=== PATIENT | male | born 1955 | race Caucasian/White ===

== ENCOUNTER → 2019-09-13 | Outpatient (CLI) | payer BC ==
[~2019-09-13] MED LIST: ACTONEL 35 MG35 M1 PO; ASA81BEC PO; ATENOLOL 50MG T50 MG PO; CALCIUM WITH V1 EAC1 PO; CENTRUM SILVER1 EAC5 PO; DOXYCYCLINE150 MG PO; FLOMAX0.4 MG PO; LYRICA300 MG PO; PERCOCET 10-321 EAC1 PO; PREVACID30 MG PO; PROAIR HFA8.5 GM INH; SKELAXIN 800 M800 M1 PO; SPIRIVA INH
== END ==
LOC: HYPER 16:48
DX: T85.79XA Infection and inflammatory reaction due to other internal prosthetic devices, implants and grafts, initial encounter (principal); T81.31XA Disruption of external operation (surgical) wound, not elsewhere classified, initial encounter; L97.422 Non-pressure chronic ulcer of left heel and midfoot with fat layer exposed; M86.172 Other acute osteomyelitis, left ankle and foot; L03.116 Cellulitis of left lower limb; L84 Corns and callosities; M19.90 Unspecified osteoarthritis, unspecified site; M81.0 Age-related osteoporosis without current pathological fracture; B99.9 Unspecified infectious disease; R20.0 Anesthesia of skin; J44.9 Chronic obstructive pulmonary disease, unspecified; Z87.891 Personal history of nicotine dependence; Z96.9 Presence of functional implant, unspecified; Y92.89 Other specified places as the place of occurrence of the external cause; Y83.2 Surgical operation with anastomosis, bypass or graft as the cause of abnormal reaction of the patient, or of later complication, without mention of misadventure at the time of the procedure; Y83.8 Other surgical procedures as the cause of abnormal reaction of the patient, or of later complication, without mention of misadventure at the time of the procedure

== ENCOUNTER → 2019-09-13 | Outpatient (CLI) | payer BC | LOC: HYPER 00:32 | DX: T85.79XD Infection and inflammatory reaction due to other internal prosthetic devices, implants and grafts, subsequent encounter (principal); T81.31XD Disruption of external operation (surgical) wound, not elsewhere classified, subsequent encounter; L97.422 Non-pressure chronic ulcer of left heel and midfoot with fat layer exposed; M86.172 Other acute osteomyelitis, left ankle and foot; L84 Corns and callosities; M19.90 Unspecified osteoarthritis, unspecified site; M81.0 Age-related osteoporosis without current pathological fracture; B99.9 Unspecified infectious disease; J44.9 Chronic obstructive pulmonary disease, unspecified; R20.0 Anesthesia of skin; Z87.891 Personal history of nicotine dependence; Z96.9 Presence of functional implant, unspecified; Y83.2 Surgical operation with anastomosis, bypass or graft as the cause of abnormal reaction of the patient, or of later complication, without mention of misadventure at the time of the procedure; Y83.8 Other surgical procedures as the cause of abnormal reaction of the patient, or of later complication, without mention of misadventure at the time of the procedure ==

== ENCOUNTER → 2019-09-14 | Outpatient (CLI) | payer OTHER ==
--- NOTE | 2019-09-14 17:21 | NUR ---
DR LASSITER WANTED PICC FOR LT ABX. 4FRSLPICC PLACED LT ARM WITH TIP AT THE CAJ PER CXR.
[2019-09-14 18:00] VITALS: BP 106/56
--- NOTE | 2019-09-14 18:27 | NUR ---
PT HERE FOR PICC LINE PLACEMENT AND FIRST DOSE CEFAZOLIN. INSURANCE CHECKED, OUT OF POCKET IN THE HOME INFUSIONS WITH [facility] WILL BE $305 WEEKLY. PT FEELS THIS WILL BE A FINANCIAL BURDEN. DR. LASSITER NOTIFIED WITH OPTION TO CHANGE TO [facility] IF THIS WOULD BE MORE COST EFFECTIVE. HOWEVER, INSURANCE CHECK DONE NOTING $305 DAILY COPAY FOR IT. PLAN THEN TO GO WITH HOME INFUSIONS. FIRST DOSE GIVEN HERE. PT TOLERATED WITHOUT ANY S/S REACTION. [facility] WILL CALL PT TO SET UP TIME FOR HOME INFUSION MED/SUPPLY DELIVERY AND TIME FOR TEACHING. PT GIVEN THEIR NUMBER. REVIEWED PLAN WITH PT WHO VERBALIZES GOOD UNDERSTANDING. WILL DISMISS HOME BY SELF.
== END ==
LOC: OPONC 15:33
DX: L03.116 Cellulitis of left lower limb (principal)
CPT/HCPCS: 27000; 95000

== ENCOUNTER → 2019-09-22 | Outpatient (CLI) | payer OTHER | LOC: HYPER 07:18 | DX: T85.79XD Infection and inflammatory reaction due to other internal prosthetic devices, implants and grafts, subsequent encounter (principal); L97.422 Non-pressure chronic ulcer of left heel and midfoot with fat layer exposed; L03.116 Cellulitis of left lower limb; M86.172 Other acute osteomyelitis, left ankle and foot; B99.9 Unspecified infectious disease; L84 Corns and callosities; M19.90 Unspecified osteoarthritis, unspecified site; M81.0 Age-related osteoporosis without current pathological fracture; R20.0 Anesthesia of skin; J44.9 Chronic obstructive pulmonary disease, unspecified; Z87.891 Personal history of nicotine dependence; Z96.9 Presence of functional implant, unspecified; Y83.2 Surgical operation with anastomosis, bypass or graft as the cause of abnormal reaction of the patient, or of later complication, without mention of misadventure at the time of the procedure ==

== ENCOUNTER → 2019-10-07 | Outpatient (CLI) | payer OTHER ==
--- NOTE | 2019-10-07 16:00 | NUR ---
IN FOR PICC DRESSING CHANGE AND BLOOD COLLECTION FROM PICC LINE. PICC SITE LOOKS GOOD. RECEIVED A GOOD BLOOD RETURN AND ABLE TO DRAW LABS WITHOUT DIFFICULTY. PICC DRESSING CHANGED. TO RETURN NEXT THURSDAY FOR THE SAME. DISMISSED IN GOOD CONDITION.
[2019-10-07 16:14] LABS: HEMATOCRIT 43.4 % (42.0-52.0); HEMOGLOBIN 14.6 gm/dL (14.0-18.0); MCH 30.8 pg (26.0-34.0); MCHC 33.6 g/dL (28.0-37.0); MCV 91.7 fL (80.0-100.0); RBC 4.74 mil/uL (4.50-6.00); RDW 14.4 % (10.5-14.5); WBC 4.6 thou/uL (4.0-11.0)
[2019-10-07 16:32] LABS: ALBUMIN 3.6 g/dL (3.4-5.0); CALCIUM 9.1 mg/dL (8.5-10.1); CREATININE 1.1 mg/dL (0.7-1.3); POTASSIUM 4.2 mmol/L (3.5-5.1); TOTAL BILIRUBIN 0.5 mg/dL (<0.1-1.0); TOTAL PROTEIN 7.4 g/dL (6.4-8.2)
== END ==
LOC: OPONC 13:53
PROVIDERS: Specialist
DX: L03.116 Cellulitis of left lower limb (principal)

== ENCOUNTER → 2019-10-10 | Outpatient (CLI) | payer OTHER | LOC: HYPER 09:00 | DX: T85.79XD Infection and inflammatory reaction due to other internal prosthetic devices, implants and grafts, subsequent encounter (principal); L97.428 Non-pressure chronic ulcer of left heel and midfoot with other specified severity; M86.172 Other acute osteomyelitis, left ankle and foot; L03.116 Cellulitis of left lower limb; L84 Corns and callosities; B99.9 Unspecified infectious disease; R20.0 Anesthesia of skin; J44.9 Chronic obstructive pulmonary disease, unspecified; M19.90 Unspecified osteoarthritis, unspecified site; M81.0 Age-related osteoporosis without current pathological fracture; F14.90 Cocaine use, unspecified, uncomplicated; Z87.891 Personal history of nicotine dependence; Z96.9 Presence of functional implant, unspecified; Y83.8 Other surgical procedures as the cause of abnormal reaction of the patient, or of later complication, without mention of misadventure at the time of the procedure ==

== ENCOUNTER → 2019-10-10 | Outpatient (CLI) | payer OTHER ==
--- NOTE | 2019-10-10 16:11 | NUR ---
PATIENT CAME TO CLINIC UNANNOUNCED WITH PAIN AT PICC SITE. PICC FLUSHED EASILY AND RECEIVED GOOD BLOOD RETURN, HOWEVER PATIENT RELATED BURNING PAIN WHEN FLUSHING AND WHEN GIVING HIS ANTIBIOTIC AT HOME. NO REDNESS, EDEMA NOTED. CALLED DR. LASSITER AND RECIEVED ORDER TO DC PICC LINE AND PLACE MIDLINE. IV TEAM REMOVED PICC LINE AND PLACED MIDLINE IN LEFT UPPER ARM. PATIENT TO RETURN THURSDAY FOR LABS AND DRESSING CHANGE. DISMISSED IN GOOD CONDITION.
--- NOTE | 2019-10-10 16:33 | NUR ---
CONSULTED TO REPLACE A PICC LINE WITH MIDLINE ACCESS DUE TO BURNING AND DISCOMFORT AT PICC INSERTION SITE, NO REDDNESS OR SWELLING NOTED. PICC REMOVED PER PROTOCOL. A LEFT UPPER ARM CEPHALIC VEIN WAS WIDLEY PATENT. A #4F POWERMIDLINE WAS PLACED PER POLICY. TRIMMED TO 20CM AND RELEASED FOR USE
== END ==
LOC: OPONC 15:42
DX: Z45.2 Encounter for adjustment and management of vascular access device (principal); L03.116 Cellulitis of left lower limb
CPT/HCPCS: 27000

== ENCOUNTER → 2019-10-14 | Outpatient (CLI) | payer OTHER ==
[2019-10-14 15:19] LABS: HEMATOCRIT 43.6 % (42.0-52.0); HEMOGLOBIN 14.5 gm/dL (14.0-18.0); MCH 30.3 pg (26.0-34.0); MCHC 33.3 g/dL (28.0-37.0); MCV 91.1 fL (80.0-100.0); RBC 4.79 mil/uL (4.50-6.00); RDW 14.4 % (10.5-14.5); WBC 4.1 thou/uL (4.0-11.0)
--- NOTE | 2019-10-14 15:26 | NUR ---
IN FOR MIDLINE DRESSING CHANGE AND LAB DRAW FOR CELLULITIS LT LOWER EXTREMITY. STATED FEELING WELL AND TOLERATING IV INFUSIONS WELL. DENIED PAIN, N/V, F/C, DIARRHEA. MIDLINE DRESSING CHANGED. SITE WNL. UNABLE TO GET BLOOD RETURN BUT FLUSHED EASILY. LANGUAGE TRANSLATOR JUAN LABS PERIPHERALLY. TO RETURN NEXT THURSDAY FOR THE SAME. FAXED LAB RESULTS TO DR. LASSITER. DISMISSED IN STABLE CONDITION.
[2019-10-14 15:34] LABS: ALBUMIN 3.7 g/dL (3.4-5.0); CALCIUM 8.8 mg/dL (8.5-10.1); CREATININE 0.9 mg/dL (0.7-1.3); POTASSIUM 3.7 mmol/L (3.5-5.1); TOTAL BILIRUBIN 0.7 mg/dL (<0.1-1.0); TOTAL PROTEIN 7.3 g/dL (6.4-8.2)
== END ==
LOC: OPONC 09:06
PROVIDERS: Specialist
DX: L03.116 Cellulitis of left lower limb (principal)
CPT/HCPCS: 91017

== ENCOUNTER 2019-10-17 16:19 | Emergency (ER) | payer OTHER ==
[~2019-10-17] VITALS: Ht 167.6 cm; Wt 77.1 kg
[2019-10-17 18:44] VITALS: BP 125/72
== END 2019-10-17 18:46 | disposition home or self-care (01) ==
LOC: ER 16:19
DX: T82.534A Leakage of infusion catheter, initial encounter (principal); J44.9 Chronic obstructive pulmonary disease, unspecified; M81.0 Age-related osteoporosis without current pathological fracture; G62.9 Polyneuropathy, unspecified; Z88.1 Allergy status to other antibiotic agents; Y84.8 Other medical procedures as the cause of abnormal reaction of the patient, or of later complication, without mention of misadventure at the time of the procedure; Y92.89 Other specified places as the place of occurrence of the external cause

== ENCOUNTER → 2019-10-17 | Emergency (ER) | payer OTHER ==
[~2019-10-17] VITALS: Ht 167.6 cm; Wt 77.1 kg
[2019-10-17 23:36] VITALS: BP 125/73
== END ==
LOC: ER 23:25
DX: Z45.2 Encounter for adjustment and management of vascular access device (principal); J44.9 Chronic obstructive pulmonary disease, unspecified; M81.0 Age-related osteoporosis without current pathological fracture

== ENCOUNTER → 2019-10-18 | Outpatient (CLI) | payer OTHER ==
--- NOTE | 2019-10-18 13:05 | NUR ---
PATIENT CAME IN WITH COMPLAINTS OF MIDLINE LEAKING. FLUSHED MIDLINE WITH 10 ML NS AND SMALL AMOUNT OF PINK FLUID LEAKED ONTO DRESSING. MIDLINE REMOVED BY IV TEAM. IV TEAM REPLACED MIDLINE. PATIENT DOES HIS OWN ANTIBIOTIC INFUSIONS AT HOME. PATIENT TO RETURN THURSDAY FOR LAB DRAW AND DRESSING CHANGE. DISMISSED IN GOOD CONDITION.
--- NOTE | 2019-10-18 14:40 | NUR ---
PT CAME INTO OUTPATIENT WITH LEAKING MIDLINE. DR JOVEL ORDERED FOR ML REPLACEMENT. ML REMOVED PRESSURE HELD X5 MINUTES.LOURDES BASILIC WAS WIDELY PATENT WITH USG, 4FR POWER MIDLINE TRIMMED TO 12CM INSERTED TO 2CM EXTERNAL WITH BRISK BR.MIDLINE RELEASED FOR IMMEDIATE USE PER PROTOCOL. WALLET CARD GIVEN TO PATIENT. PT TOLERATED PROCEDURE WELL
== END ==
LOC: OPONC 11:48 → EDSTATUS 11:51 → OPONC 11:51
DX: T82.534A Leakage of infusion catheter, initial encounter (principal)
CPT/HCPCS: 27000

== ENCOUNTER → 2019-10-21 | Outpatient (CLI) | payer OTHER ==
[2019-10-21 14:31] LABS: HEMATOCRIT 44.4 % (42.0-52.0); HEMOGLOBIN 14.9 gm/dL (14.0-18.0); MCH 30.7 pg (26.0-34.0); MCHC 33.6 g/dL (28.0-37.0); MCV 91.4 fL (80.0-100.0); RBC 4.86 mil/uL (4.50-6.00); RDW 13.8 % (10.5-14.5); WBC 4.8 thou/uL (4.0-11.0)
[2019-10-21 14:44] LABS: ALBUMIN 3.6 g/dL (3.4-5.0); CALCIUM 8.8 mg/dL (8.5-10.1); POTASSIUM 3.8 mmol/L (3.5-5.1); TOTAL BILIRUBIN 0.9 mg/dL (<0.1-1.0); TOTAL PROTEIN 7.4 g/dL (6.4-8.2)
--- NOTE | 2019-10-21 14:47 | NUR ---
IN FOR CENTRAL LINE LAB DRAW AND TO REMOVE MIDLINE. UNABLE TO GET BLOOD RETURN FROM MIDLINE. JUAN LABS PERIPHERALLY. REMOVED MIDLINE WITHOUT DIFFICULTY. SITE WITHIN NORMAL LIMITS. HELD PRESSURE FOR 5 MINUTES, APPLIED GAUZE AND COVERED WITH COBAN. DISMISSED IN GOOD CONDITION.
== END ==
LOC: OPONC
PROVIDERS: Specialist
DX: L03.116 Cellulitis of left lower limb (principal)
CPT/HCPCS: 91017